=== PATIENT | male | born 1970 | race African-American/Black ===

== ENCOUNTER 2024-12-28 08:11 | Day surgery (SDC) | payer BC ==
[2024-12-22 13:17] VITALS: BMI 33.0
[2024-12-28] MEDS ORDERED: PROPOFOL 60 ML ONE (08:36)
[2024-12-28] MEDS ORDERED: LIDOCAINE HCL/PF 2% SDV 5ML VIAL ONE (08:43)
[2024-12-28 09:44] VITALS: RESP 18
[2024-12-28 09:46] VITALS: BP 137/88; PULSE 88; TEMP 97.8
== END 2024-12-28 09:50 | disposition home or self-care (01) ==
LOC: FASU-ENDO 08:11
PROVIDERS: ATTEND Internal Medicine Gastroenterology
PROC: 0DJD8ZZ Inspection of Lower Intestinal Tract, Via Natural or Artificial Opening Endoscopic (ICD-10-PCS; principal; 2024-12-28 08:45)
DX: Z12.11 Encounter for screening for malignant neoplasm of colon (principal)
CPT/HCPCS: 82962